=== PATIENT | female | born 1935 | race Caucasian/White ===

== ENCOUNTER 2018-02-27 14:26 | Inpatient (IN) | payer MEDICARE, OTHER ==
[~2018-02-27] VITALS: Ht 167.6 cm; Wt 68.5 kg
[2018-02-27] VITALS (11 sets, daily range): BP systolic 165–220; BP diastolic 76–100
--- NOTE | ~2018-02-27 | WRIGHTHP ---
[place], [place] PATIENT HISTORY AND PHYSICAL EXAM [id number] #: [id number] ROOM: [place] [address] DOCTOR: JENNIFFER ALMANZA MD BIRTHDATE: [birth year] DOS: 02/27/2018 HISTORY OF PRESENT ILLNESS: 1. The patient is an 82-year-old female with a past medical history of severe benign essential hypertension. 2. History of pollen allergies. 3. Mixed hyperlipidemia. The patient presented to the Emergency Department with swelling in her tongue after she was stung by a bee. The patient required epinephrine which helped her tongue swelling, but caused severe hypertension. The patient was given hydralazine and blood pressures improved. The patient does have severe history of elevated blood pressures, which are controlled with labetalol and losartan. The patient was admitted to the ICU for close monitoring, but then her blood pressures have improved and she is feeling much better. She just had some swelling in her right hand and her tongue swelling has improved. Earlier, the patient was unable to speak properly because the swelling of her tongue. REVIEW OF SYSTEMS: LUNGS: No increasing shortness of breath. GASTROINTESTINAL: No nausea, vomiting, diarrhea, constipation. CARDIOVASCULAR: No chest pain or palpitations. FAMILY HISTORY: Noncontributory. SOCIAL HISTORY: Denies smoking cigarettes, alcohol and drug abuse. PHYSICAL EXAMINATION: GENERAL: Alert, oriented x 3, in no visible distress. HEENT AND NECK: Extraocular movements are intact. Sclerae are anicteric. Oral mucosa is moist and clean. No obvious facial weakness. Neck is supple without any lymphadenopathy. No thyromegaly. No JVD. No carotid arterial bruits. LUNGS: Clear to auscultation. No wheezing. No rhonchi. CARDIOVASCULAR SYSTEM: Heart rate is regular in rate and rhythm. S1 and S2 normally audible. No significant murmur or any other abnormal cardiac sounds. ABDOMEN: Soft, nontender. No obvious organomegaly. Bowel sounds are present. No obvious herniation. EXTREMITIES: The patient with some swelling and edema on the right hand. CENTRAL NERVOUS SYSTEM: Alert and oriented x 3. Cranial nerves II-XII are intact. Speech is normal. The patient is able to move all extremities. Normal muscle strength. Deep tendon reflexes are equal on both sides. Plantars were downgoing. IMPRESSION: 1. The patient with anaphylactic reaction and swelling in her tongue to bee sting, improved with use of epinephrine. The patient was closely monitored in the ICU, but she is feeling much better, so she will be transferred to intermediate monitored bed. 2. Severe hypertension and reaction to use of epinephrine and the patient already has history of severe hypertension. The patient's blood pressures have improved after she was given hydralazine in the Emergency Department. I will continue her labetalol and losartan and follow her closely on a monitored bed. [place], [place] PATIENT HISTORY AND PHYSICAL EXAM NAME: HEBERT WILDER UNIT #: [id number] ROOM: [place] [address] DOCTOR: CAMI BRAVO,JENNIFFER Segundo BIRTHDATE: [birth year] 3. Pollen allergies treated and controlled with Zyrtec, which is being continued. 4. Mixed hyperlipidemia, treated with pravastatin, which has been continued. JENNIFFER ALMANZA MD CM:HISPHYS:PATIENT HISTORY AND PHYSICAL EXAMINATION 09 [phone] JENNIFFER ALMANZA MD 02/27/182051 interface
--- NOTE | ~2018-02-27 | DS ---
[place], [place] DISCHARGE SUMMARY NAME: HEBERT WILDER UNIT #: [id number] ROOM: 406 DOCTOR: JENNIFFER ALMANZA MD BIRTHDATE: [birth year] DOS: 02/28/2018 DISCHARGE DIAGNOSES: 1. Anaphylactic reaction to bee sting yesterday. 2. History of pollen allergies. 3. Mixed hyperlipidemia. HOSPITAL COURSE: The patient presented to the emergency department at [facility] after a bee sting. patient about an hour, but she started feeling that her tongue was swelling up and she was having difficulty in speaking. The patient was given epinephrine and she recovered, but this resulted in severe hypertension, which was treated with hydralazine. The patient's blood pressures normalized and she was continued on labetalol. The patient's blood pressures are somewhat elevated right now, so she is being restarted on losartan, which she also takes at home. We will give her 1 dose of losartan and send her home and I will see her in the office in a few days. Pollen allergies which are treated and controlled with Zyrtec, which have been continued. Mixed hyperlipidemia treated with simvastatin and followed with blood work. The patient was kept on Solu-Medrol and she has had no reaction since admission. Heart rate, blood pressures are reasonably controlled, no signs of any anaphylaxis or any swelling of the tongue or any other reactions at this time. LABORATORY DATA: Normal serum electrolytes, bilirubin, liver enzymes, normal CBC. DISCHARGE MANAGEMENT: Losartan same dose as she was taking at home, labetalol 200 mg b.i.d., simvastatin 10 mg daily, aspirin 81 mg a day, cetirizine 10 mg a day. Follow up at the office on Friday. [place], [place] DISCHARGE SUMMARY NAME: HEBERT WILDER UNIT #: [id number] ROOM: 406 DOCTOR: JENNIFFER ALMANZA MD BIRTHDATE: [birth year] JENNIFFER ALMANZA MD CM:DISCHARG [id number] JENNIFFER ALMANZA MD 02/28/18 1711 interface
[~2018-02-27 14:26] MED LIST: AMOXICILLIN500 MG PO; ANTIVERT/2525 MG PO; ATENOLOL25 MG PO; AUGMENTIN 875 M1 TA1 PO; BUSPIRONE10 MG PO; CLONIDINE0.1 MG PO; COZAAR100 MG PO; Ciprofloxacin500 MG PO; FLAGYL500 MG PO; HYDR12.5C PO; HYDROCODONE BIT1 T11 PO; LABETALOL HCL200 MG PO; LABETALOL HYDR200 MG PO; LEVOFLOXACIN500 MG PO; LOSARTAN POTASS1 TA2 PO; LOSARTAN POTASS1 TAB PO; MOTRIN800 MG PO; NAPROSYN500 MG PO; NORCO 325 MG-51 TAB PO; PRAVACHOL40 MG PO; PRED-PAK 455 MG PO; PREDNICOT10 MG PO; PREDNISONE10 MG PO; PROPRANOLOL ER80 MG PO; PROVERA10 MG PO; VIBRAMYCIN100 MG PO; ZOLOFT50 MG PO
[2018-02-27 16:12] LABS: BASO % 0.1 % (0.0-1.0); EOS # 0.1 10*3/uL (0.0-0.4); EOS % 0.9 % (1.0-4.0); HEMOGLOBIN 12.5 g/dl (12.0-16.0); LYMPH # 0.7 10*3/uL (1.3-4.4); LYMPH % 6.8 % (27.0-41.0); MEAN CELL VOLUME 90.7 fl (81.0-99.0); MEAN CORPUSCULAR HGB 31.5 pg (27.0-31.0); MEAN CORPUSCULAR HGB CONC 34.7 g/dl (33.0-37.0); MEAN PLATELET VOLUME 9.4 fl (9.6-12.3); MONO # 0.5 10*3/uL (0.1-1.0); MONO % 5.2 % (3.0-9.0); NEUT # 8.9 10*3/uL (2.3-7.9); NEUT % 86.5 % (47.0-73.0); PLATELET COUNT AUTOMATED 168 10*3/uL (130-400); RED BLOOD COUNT 3.97 10*6/uL (4.10-5.10); RED CELL DISTRI WIDTH 13.3 % (0-14.5); WHITE BLOOD COUNT 10.3 10*3/uL (4.8-10.8)
[2018-02-27 16:24] LABS: ALBUMIN 3.8 gm/dl (3.1-4.5); ALKALINE PHOSPHATASE 45 U/L (45-117); BUN 22 mg/dl (7-24); CHLORIDE 108 mmol/L (98-107); CREATININE 0.83 mg/dL (0.55-1.02); POTASSIUM 3.7 mmol/L (3.5-5.1); SGOT/AST 18 IU/L (3-35); SGPT/ALT 25 U/L (12-78); SODIUM 141 mmol/L (136-145); TOTAL PROTEIN 6.2 gm/dL (6.4-8.2)
[2018-02-27 16:25] LABS: TROPONIN I < 0.015 ng/ml (<0.045)
[2018-02-27 17:16] LABS: BILIRUBIN NEGATIVE (NEGATIVE); BLOOD NEGATIVE (NEGATIVE); CLARITY CLEAR (CLEAR); COLOR YELLOW (YELLOW); GLUCOSE NEGATIVE (NEGATIVE); KETONE NEGATIVE (NEGATIVE); LEUKO ESTERASE NEGATIVE (NEGATIVE); NITRITE NEGATIVE (NEGATIVE); PH 6.5 (5.0-9.0); SPECIFIC GRAVITY <= 1.005 (1.005-1.030); UROBILINOGEN 0.2 E.U./dl (0.2-1.0)
[2018-02-27 17:52] LABS: BACTERIA TRACE; EPITHELIAL CELLS 0-2; RBC 0-2 rbc/hpf (0-2); WBC 0-2 wbc/hpf (0-5)
[2018-02-27] MEDS ORDERED: CITRACAL + D E1 EACH PO (19:14)
[2018-02-27] MEDS ORDERED: FISH OIL CONC1000 M1 PO (19:15)
[2018-02-27] MEDS ORDERED: ZYRTEC10 MG PO (19:16)
[2018-02-27] MEDS ORDERED: PRAVASTATIN SOD20 MG PO (19:16)
[2018-02-27] MEDS ORDERED: ASPIRIN ADULT L81 M1 PO (19:16)
[2018-02-27] MEDS ORDERED: ASCORBIC ACID500 M2 PO (19:17)
[2018-02-27] MEDS ORDERED: VITAMIN D-32000 UNIT PO (19:17)
[2018-02-28] VITALS: BP 144/67
[2018-02-28 08:00] VITALS: BP 166/71
[2018-02-28 12:00] VITALS: BP 157/73
[2018-02-28 16:00] VITALS: BP 189/81
[2018-02-28] MEDS ORDERED: EPIPEN 2-P0.3 MG/0.3 IJ (16:46)
== END 2018-02-28 17:41 | disposition home or self-care (01) | DRG 918 ==
LOC: ED 14:26 → EDHOLD 17:54 → 4E 17:54 → ICCU 18:13 → 4E 21:07
PROVIDERS: Physician Assistant
DX: T63.441A Toxic effect of venom of bees, accidental (unintentional), initial encounter (principal); T78.2XXA Anaphylactic shock, unspecified, initial encounter; I16.0 Hypertensive urgency; I10 Essential (primary) hypertension; E78.2 Mixed hyperlipidemia; Z98.42 Cataract extraction status, left eye; Z98.41 Cataract extraction status, right eye; Z90.710 Acquired absence of both cervix and uterus; Z82.49 Family history of ischemic heart disease and other diseases of the circulatory system; Y92.89 Other specified places as the place of occurrence of the external cause

== ENCOUNTER 2018-08-02 09:11 | Inpatient (IN) | payer MEDICARE, OTHER ==
[~2018-08-02] VITALS: Ht 167.6 cm; Wt 69.2 kg
[2018-08-02] VITALS (10 sets, daily range): BP systolic 160–210; BP diastolic 51–89
--- NOTE | ~2018-08-02 | DS ---
[place], [place] DISCHARGE SUMMARY NAME: HEBERT WILDER UNIT #: [id number] ROOM: 408 DOCTOR: JENNIFFER ALMANZA MD BIRTHDATE: [birth year] DOS: 08/03/2018 DISCHARGE DIAGNOSES: 1. Acute angioedema with tongue swelling. 2. Benign essential hypertension with elevated blood pressures. 3. History of POLLEN ALLERGIES. 4. 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 Endometrial cancer history. 6. Severe anxiety disorder. 7. Mixed hyperlipidemia. HOSPITAL COURSE: The patient presented to the Emergency Department with acute swelling of her tongue and she was taking Cozaar at home. The patient was treated with IV Solu-Medrol and H1 and H2 blockers and she started improving quickly. The patient was admitted to ICU and she has completely improved and asymptomatic and will be discharged home today. Benign essential hypertension with white coat hypertension with elevated blood pressures, now controlled with labetalol. Blood pressures have been better and systolic ranging between 130-160 range now. Mixed hyperlipidemia, treated with pravastatin. POLLEN ALLERGIES, treated with cetirizine. Vitamin D deficiency, treated with supplements. LABORATORY DATA: Normal serum electrolytes. Blood sugar 170. Normal CBC. DISCHARGE MANAGEMENT: Prednisone 20 mg b.i.d. for 6 more days, labetalol 200 mg 3 times a day, famotidine 20 mg a day, Tagamet 800 mg daily for a week, Zyrtec 10 mg daily. [place], [place] DISCHARGE SUMMARY NAME: HEBERT WILDER UNIT #: [id number] ROOM: 408 DOCTOR: JENNIFFER ALMANZA MD BIRTHDATE: [birth year] JENNIFFER ALMANZA MD CM:DISCHARG [id number] JENNIFFER ALMANZA MD 08/03/18 1205 interface
--- NOTE | ~2018-08-02 | WRIGHTHP ---
[place], [place] PATIENT HISTORY AND PHYSICAL EXAM [id number] UNIT #: [id number] ROOM: [facility] DOCTOR: JENNIFFER ALMNAZA MD BIRTHDATE: [birth year] DOS: 08/02/2018 HISTORY OF PRESENT ILLNESS: 1. The patient is an 82-year-old female with a past medical history of BEE STING allergy, which causes anaphylaxis. 2. History of POLLEN allergies. 3. History of benign essential hypertension. 4. Mixed hyperlipidemia. 5. Severe anxiety disorder. 6. History of endometrial cancer. The patient presented to [facility] Emergency Department with swelling of the tongue starting this morning. The patient was treated with corticosteroids and antihistamine. As she started improving, she did not require intubation, but she was admitted to ICU for close monitoring. The swelling in her tongue continues to improve. No shortness of breath. No GI or urinary symptoms. No dizziness or fainting episodes. REVIEW OF SYSTEMS: RESPIRATORY: No increasing shortness of breath. GASTROINTESTINAL: The patient with acute swelling of the tongue. CARDIOVASCULAR SYSTEM: No chest pain or palpitations. ALLERGIES: 1. BEE STINGS, which causes anaphylaxis. 2. Allergy to THEO INHIBITORS and ARB, which causes tongue swelling. FAMILY HISTORY: Noncontributory. SOCIAL HISTORY: Denies smoking cigarettes, alcohol and drug abuse. HOME MEDICATIONS: Labetalol, losartan, vitamin C, aspirin, calcium, cetirizine, vitamin D, omega 3, pravastatin. PHYSICAL EXAMINATION: GENERAL: Alert and oriented. VITAL SIGNS: Blood pressure 167/72, heart rate 62 beats per minute, breathing 20 times per minute, temperature 98.5 degrees Fahrenheit. HEENT AND NECK: Extraocular movements are intact. Sclerae are anicteric. Oral mucosa is moist and clean. No obvious facial weakness. Neck is supple without any lymphadenopathy. No thyromegaly. No JVD. No carotid arterial bruits. LUNGS: Clear to auscultation. No wheezing. No rhonchi. CARDIOVASCULAR SYSTEM: Heart rate is regular in rate and rhythm. S1 and S2 normally audible. No significant murmur or any other abnormal cardiac sounds. ABDOMEN: Soft, nontender. No obvious organomegaly. Bowel sounds are present. No obvious herniation. EXTREMITIES: Without significant cyanosis or edema. Warm to touch. CENTRAL NERVOUS SYSTEM: Alert and oriented x 3. Cranial nerves II-XII are intact. Speech is normal. The patient is able to move all extremities. Normal muscle strength. Deep tendon reflexes are equal on both sides. Plantars were [place], [place] PATIENT HISTORY AND PHYSICAL EXAM NAME: HEBERT WILDER UNIT #: [id number] ROOM: [facility] DOCTOR: JENNIFFER ALMANZA MD BIRTHDATE: [birth year] downgoing. LABORATORY DATA: Chest x-ray with clear lungs. Normal serum electrolytes. Normal CBC. IMPRESSION: 1. The patient with angioedema and tongue swelling, which improved with use of corticosteroids and antihistamine. The patient to be kept on Zyrtec, ____ and prednisone and followed closely in ICU. I discussed the case with Dr. Fowler. The patient already on labetalol, which will be continued. 2. Allergy to LOSARTAN, which apparently caused angioedema, has been stopped and marked as an allergy. 3. Benign essential hypertension to be treated and controlled. 4. Mixed hyperlipidemia, treated and followed. 5. POLLEN allergies, treated with Zyrtec. 6. Generalized anxiety disorder to be treated as necessary. JENNIFFER ALMANZA MD CM:HISPHYS:PATIENT HISTORY AND PHYSICAL EXAMINATION [id number] JENNIFFER ALMANZA MD 08/02/18 1627 interface
[~2018-08-02 09:11] MED LIST changes: +ASCORBIC ACID500 M2 PO; +ASPIRIN ADULT L81 M1 PO; +CITRACAL + D E1 EACH PO; +EPIPEN 2-P0.3 MG/0.3 IJ; +FISH OIL CONC1000 M1 PO; +PRAVASTATIN SOD20 MG PO; +VITAMIN D-32000 UNIT PO; +ZYRTEC10 MG PO
[2018-08-02 09:44] LABS: BASO % 0.4 % (0.0-1.0); EOS # 0.2 10*3/uL (0.0-0.4); EOS % 3.3 % (1.0-4.0); HEMATOCRIT 36.5 % (37.0-47.0); HEMOGLOBIN 12.5 g/dl (12.0-16.0); LYMPH # 1.3 10*3/uL (1.3-4.4); LYMPH % 24.8 % (27.0-41.0); MEAN CELL VOLUME 92.2 fl (81.0-99.0); MEAN CORPUSCULAR HGB 31.6 pg (27.0-31.0); MEAN CORPUSCULAR HGB CONC 34.2 g/dl (33.0-37.0); MEAN PLATELET VOLUME 9.4 fl (9.6-12.3); MONO # 0.5 10*3/uL (0.1-1.0); MONO % 10.1 % (3.0-9.0); NEUT # 3.1 10*3/uL (2.3-7.9); PLATELET COUNT AUTOMATED 192 10*3/uL (130-400); RED BLOOD COUNT 3.96 10*6/uL (4.10-5.10); RED CELL DISTRI WIDTH 13.4 % (0-14.5); WHITE BLOOD COUNT 5.1 10*3/uL (4.8-10.8)
[2018-08-02 09:56] LABS: ACT PARTIAL THROMBO TIME 23.8 SECONDS (20.8-31.5)
[2018-08-02 09:59] LABS: ALBUMIN 3.7 gm/dl (3.1-4.5); ALKALINE PHOSPHATASE 50 U/L (45-117); BUN 18 mg/dl (7-24); CHLORIDE 105 mmol/L (98-107); CREATININE 1.04 mg/dL (0.55-1.02); POTASSIUM 4.1 mmol/L (3.5-5.1); SGOT/AST 15 IU/L (3-35); SODIUM 141 mmol/L (136-145); TOTAL PROTEIN 6.7 gm/dL (6.4-8.2)
[2018-08-02 10:01] LABS: SGPT/ALT 25 U/L (12-78)
[2018-08-02 10:18] LABS: TROPONIN I < 0.015 ng/ml (<0.045)
[2018-08-03] VITALS: BP 132/59
[2018-08-03 04:00] VITALS: BP 121/61
[2018-08-03 08:00] VITALS: BP 162/70
[2018-08-03] MEDS ORDERED: TAGAMET HB200 M1 PO (10:21)
[2018-08-03] MEDS ORDERED: PREDNISONE20 M1 PO (10:21)
== END 2018-08-03 10:45 | disposition home or self-care (01) | DRG 916 ==
LOC: ED 09:11 → EDHOLD 11:43 → ICCU 11:49 → 4E 08-03 10:12
PROVIDERS: Emergency Medicine
DX: T78.3XXA Angioneurotic edema, initial encounter (principal); I16.1 Hypertensive emergency; T46.5X5A Adverse effect of other antihypertensive drugs, initial encounter; F41.1 Generalized anxiety disorder; E78.2 Mixed hyperlipidemia; I10 Essential (primary) hypertension; E55.9 Vitamin D deficiency, unspecified; Z79.82 Long term (current) use of aspirin; Z79.899 Other long term (current) drug therapy; Z85.42 Personal history of malignant neoplasm of other parts of uterus; Z88.8 Allergy status to other drugs, medicaments and biological substances; Z91.030 Bee allergy status; Z87.81 Personal history of (healed) traumatic fracture; Z90.710 Acquired absence of both cervix and uterus; Z98.49 Cataract extraction status, unspecified eye; Y92.89 Other specified places as the place of occurrence of the external cause

== ENCOUNTER → 2019-02-02 | Outpatient (CLI) | payer MEDICARE, OTHER ==
[~2019-02-02] MED LIST changes: +PREDNISONE20 M1 PO; +TAGAMET HB200 M1 PO
== END | disposition home or self-care (01) ==
LOC: RAD 13:00
DX: Z13.820 Encounter for screening for osteoporosis (principal); Z78.0 Asymptomatic menopausal state; Z90.710 Acquired absence of both cervix and uterus

== ENCOUNTER → 2019-06-15 | Outpatient (CLI) | payer MEDICARE, OTHER ==
[2019-06-15 10:14] LABS: BASO # 0.1 10*3/uL (0.0-0.1); BASO % 1.1 % (0.0-1.0); EOS # 0.3 10*3/uL (0.0-0.4); EOS % 5.4 % (1.0-4.0); HEMATOCRIT 36.9 % (37.0-47.0); HEMOGLOBIN 12.3 g/dl (12.0-16.0); LYMPH # 0.8 10*3/uL (1.3-4.4); LYMPH % 15.3 % (27.0-41.0); MEAN CELL VOLUME 94.9 fl (81.0-99.0); MEAN CORPUSCULAR HGB 31.6 pg (27.0-31.0); MEAN CORPUSCULAR HGB CONC 33.3 g/dl (33.0-37.0); MEAN PLATELET VOLUME 9.5 fl (9.6-12.3); MONO # 0.7 10*3/uL (0.1-1.0); MONO % 13.5 % (3.0-9.0); NEUT # 3.4 10*3/uL (2.3-7.9); NEUT % 64.3 % (47.0-73.0); PLATELET COUNT AUTOMATED 186 10*3/uL (130-400); RED BLOOD COUNT 3.89 10*6/uL (4.10-5.10); RED CELL DISTRI WIDTH 13.6 % (0-14.5); WHITE BLOOD COUNT 5.4 10*3/uL (4.8-10.8)
[2019-06-15 10:41] LABS: ALBUMIN 3.8 gm/dl (3.1-4.5); ALKALINE PHOSPHATASE 69 U/L (45-117); BUN 21 mg/dl (7-24); CHLORIDE 111 mmol/L (98-107); CHOLESTEROL 135 mg/dL (<200); CPK 65 U/L (26-192); FREE T4 0.87 ng/dl (0.76-1.46); HDL CHOLESTEROL 53 mg/dl (40-60); LDL CHOLESTEROL 54 mg/dL (9-159); POTASSIUM 5.2 mmol/L (3.5-5.1); SGOT/AST 13 IU/L (3-35); SGPT/ALT 20 U/L (12-78); SODIUM 142 mmol/L (136-145); TOTAL PROTEIN 6.8 gm/dL (6.4-8.2); TRIGLYCERIDES 141 mg/dl (<150); VLDL CHOLESTEROL 28 mg/dL (6-40)
[2019-06-15 11:09] LABS: VITAMIN D, 25-HYDROXY 47.5 ng/mL (30-100)
== END | disposition home or self-care (01) ==
LOC: LAB 09:49
PROVIDERS: Internal Medicine
DX: E78.2 Mixed hyperlipidemia (principal); E55.9 Vitamin D deficiency, unspecified; I10 Essential (primary) hypertension; D52.9 Folate deficiency anemia, unspecified; D51.9 Vitamin B12 deficiency anemia, unspecified; R74.8 Abnormal levels of other serum enzymes

== ENCOUNTER → 2019-10-12 | Outpatient (CLI) | payer MEDICARE, OTHER ==
[2019-10-12 14:55] LABS: BASO % 0.7 % (0.0-1.0); EOS # 0.2 10*3/uL (0.0-0.4); EOS % 4.2 % (1.0-4.0); HEMATOCRIT 37.3 % (37.0-47.0); HEMOGLOBIN 12.3 g/dl (12.0-16.0); LYMPH # 1.1 10*3/uL (1.3-4.4); LYMPH % 24.8 % (27.0-41.0); MEAN CELL VOLUME 94.2 fl (81.0-99.0); MEAN CORPUSCULAR HGB 31.1 pg (27.0-31.0); MEAN PLATELET VOLUME 9.4 fl (9.6-12.3); MONO # 0.4 10*3/uL (0.1-1.0); MONO % 8.6 % (3.0-9.0); NEUT # 2.8 10*3/uL (2.3-7.9); PLATELET COUNT AUTOMATED 160 10*3/uL (130-400); RED BLOOD COUNT 3.96 10*6/uL (4.10-5.10); RED CELL DISTRI WIDTH 14.6 % (0-14.5); WHITE BLOOD COUNT 4.5 10*3/uL (4.8-10.8)
[2019-10-12 15:26] LABS: ALBUMIN 3.9 gm/dl (3.1-4.5); ALKALINE PHOSPHATASE 56 U/L (45-117); BUN 18 mg/dl (7-24); CHLORIDE 109 mmol/L (98-107); CREATININE 0.93 mg/dL (0.55-1.02); FREE T4 0.86 ng/dl (0.76-1.46); POTASSIUM 4.1 mmol/L (3.5-5.1); SGOT/AST 13 IU/L (3-35); SGPT/ALT 21 U/L (12-78); SODIUM 142 mmol/L (136-145); TOTAL PROTEIN 6.8 gm/dL (6.4-8.2)
[2019-10-12 15:33] LABS: VITAMIN D, 25-HYDROXY 45.7 ng/mL (30-100)
== END | disposition home or self-care (01) ==
LOC: LAB 14:12
PROVIDERS: Internal Medicine
DX: I10 Essential (primary) hypertension (principal); E78.2 Mixed hyperlipidemia; E55.9 Vitamin D deficiency, unspecified; D52.9 Folate deficiency anemia, unspecified; D51.9 Vitamin B12 deficiency anemia, unspecified

== ENCOUNTER 2019-12-02 12:03 | Inpatient (IN) | payer MEDICARE, OTHER ==
[~2019-12-02] VITALS: Ht 167.6 cm; Wt 65.0 kg
[2019-12-02] VITALS (7 sets, daily range): BP systolic 124–210; BP diastolic 54–90
[~2019-12-02 12:03] MED LIST changes: -LABETALOL HYDR200 MG PO; +NORMODYNE,TRAN100 MG PO; -PRAVASTATIN SOD20 MG PO
--- NOTE | 2019-12-02 12:48 | NUR ---
VINE PRUNER ATTEMPTED IV ACCESS.
[2019-12-02 13:06] LABS: BASO % 0.5 % (0.0-1.0); EOS # 0.2 10*3/uL (0.0-0.4); EOS % 2.3 % (1.0-4.0); HEMATOCRIT 39.4 % (37.0-47.0); HEMOGLOBIN 13.2 g/dl (12.0-16.0); LYMPH # 1.1 10*3/uL (1.3-4.4); MEAN CELL VOLUME 93.4 fl (81.0-99.0); MEAN CORPUSCULAR HGB 31.3 pg (27.0-31.0); MEAN CORPUSCULAR HGB CONC 33.5 g/dl (33.0-37.0); MEAN PLATELET VOLUME 9.2 fl (9.6-12.3); MONO # 0.6 10*3/uL (0.1-1.0); MONO % 8.5 % (3.0-9.0); NEUT # 5.5 10*3/uL (2.3-7.9); NEUT % 72.8 % (47.0-73.0); PLATELET COUNT AUTOMATED 225 10*3/uL (130-400); RED BLOOD COUNT 4.22 10*6/uL (4.10-5.10); RED CELL DISTRI WIDTH 14.5 % (0-14.5); WHITE BLOOD COUNT 7.6 10*3/uL (4.8-10.8)
[2019-12-02 13:17] LABS: ACT PARTIAL THROMBO TIME 22.3 SECONDS (20.0-32.1); INTERNATIONAL NORM RATIO 0.9 (2.0-3.5)
[2019-12-02 13:22] LABS: ALKALINE PHOSPHATASE 62 U/L (45-117); BUN 18 mg/dl (7-24); CHLORIDE 106 mmol/L (98-107); CREATININE 0.97 mg/dL (0.55-1.02); POTASSIUM 4.6 mmol/L (3.5-5.1); SGOT/AST 10 IU/L (3-35); SGPT/ALT 31 U/L (12-78); SODIUM 139 mmol/L (136-145); TOTAL PROTEIN 7.2 gm/dL (6.4-8.2)
[2019-12-02 13:25] LABS: TROPONIN I < 0.015 ng/ml (<0.045)
--- NOTE | 2019-12-02 14:29 | NUR ---
AMBULATED TO BATHROOM, TOLERATEWD WELL.
--- NOTE | 2019-12-02 14:38 | NUR ---
GIVEN BOXED LUNCH REQUESTED.
--- NOTE | 2019-12-02 14:38 | NUR ---
SMALL ABRASION AND HEMATOMA TO RT EYEBROW AREA. COLD SORE UNDER LEFT NARES. SEVERAL ABRASIONS TO RT KNUCKES AND RT WRIST.
--- NOTE | 2019-12-02 15:59 | NUR ---
DAUGHTER MATHEUS LOUIS [phone]
[2019-12-02] MEDS ORDERED: NORVASC5 MG PO (16:32)
[2019-12-02] MEDS ORDERED: MULTI-VITAMIN1 EACH PO (16:33)
--- NOTE | 2019-12-02 16:45 | NUR ---
Spoke with Dr. Perez regarding pt admit to floor. Notified of xray report of elbow with acute fracture of radial neck.
--- NOTE | 2019-12-02 16:52 | NUR ---
Message left with Dr. Mejia answering service regarding consult, reason for consult. Awaiting call back.
--- NOTE | 2019-12-02 17:56 | NUR ---
Spoke with Dr. Perez regarding pt c/o pain. NEw orders received for eBreviain.
--- NOTE | 2019-12-02 18:05 | NUR ---
Taken off floor for CT.
--- NOTE | 2019-12-02 18:14 | NUR ---
Medicated with norco per prn order for complaints of pain to rt wrist.
--- NOTE | 2019-12-02 18:26 | NUR ---
Pt daughter here and asking about pt arm. States pt is in a lot of pain from arm. States wrist is hurting. Pt is having difficulty moving and pain with movement. Notified that pt had an acute fracture of radial neck and that Dr. Mejia was consulted. Awaiting call back from him. I also spoke with Dr. Dupree in ER regarding this because when I received report from SUPERVISORY [employer] INTERCEPT CONTROLLER she stated in report that xrays just showed soft tissue swelling. Dr. Dupree reviewed xray and states he will be up to splint pt arm this evening. Notified pt daughter.
--- NOTE | 2019-12-02 19:45 | NUR ---
NOTIFIED SHIFT DIRECTOR THAT DR. SOTO WAS SUPPOSED TO SPLINT PATIENTS ARM. PER ER DR SOTO HAS GONE HOME. AWNING HANGER SUPERVISOR TO CALL DR. DYRE TO SEE IF SHE WILL COME UP TO SPLINT PATIENTS ARM.
--- NOTE | 2019-12-02 20:12 | NUR ---
DR. SOTO INTO SPLINT PATIETN. PATIENT TOLERATED WELL. PATIENT C/O PAIN IN RIGHT WRIST. DR. SOTO TO ORDER WRIST XRAY.
--- NOTE | 2019-12-02 21:00 | NUR ---
PATIENT R ARM IV REMOVED BECAUSE PATIEN RIGHT ARM IS BEING PLACED IN A SPLINT. NEW IV STARTED IN LAC. PT. TOLERATED WELL. IV FLUIDS INFUSING.
[2019-12-03] VITALS: BP 177/61
--- NOTE | 2019-12-03 | NUR ---
PATIENT RESTING COMFORTABLY IN BED. RESPIRATIONS EASY, NON LABORED. DENIES PAIN. NO SIGNS OF DISTRESS. IV FLUIDS INFUSING AT 100ML/HR. BED IN LOWEST POSITION, CALL LIGHT WITHIN REACH. WILL CONTINUE TO MONITOR.
--- NOTE | 2019-12-03 04:00 | NUR ---
PATIENT IN BED,SLEEPING. NO SIGNS OF DISTRESS. WILL CONTINUE TO MONITOR.
[2019-12-03 06:54] LABS: BASO % 0.3 % (0.0-1.0); EOS # 0.1 10*3/uL (0.0-0.4); EOS % 1.1 % (1.0-4.0); HEMATOCRIT 36.1 % (37.0-47.0); LYMPH % 13.5 % (27.0-41.0); MEAN CORPUSCULAR HGB 31.3 pg (27.0-31.0); MEAN CORPUSCULAR HGB CONC 33.2 g/dl (33.0-37.0); MEAN PLATELET VOLUME 9.1 fl (9.6-12.3); MONO # 0.7 10*3/uL (0.1-1.0); MONO % 10.1 % (3.0-9.0); NEUT # 5.3 10*3/uL (2.3-7.9); NEUT % 74.4 % (47.0-73.0); PLATELET COUNT AUTOMATED 204 10*3/uL (130-400); RED BLOOD COUNT 3.84 10*6/uL (4.10-5.10); RED CELL DISTRI WIDTH 14.3 % (0-14.5); WHITE BLOOD COUNT 7.1 10*3/uL (4.8-10.8)
[2019-12-03 07:08] LABS: BUN 14 mg/dl (7-24); CHLORIDE 111 mmol/L (98-107); CREATININE 0.81 mg/dL (0.55-1.02); SODIUM 142 mmol/L (136-145)
[2019-12-03 07:09] LABS: POTASSIUM 3.6 mmol/L (3.5-5.1)
[2019-12-03 08:00] VITALS: BP 162/74
--- NOTE | 2019-12-03 08:30 | NUR ---
Senior Peoples[employer] Developer in to talk to patient. Patient states lives at home with her . There are 0 steps in the home. Physician: Dr. Marvin Green Pharmacy: [facility] Home health services: none Patient's level of ADLs: INDEPENDENT Patient has working utilities: yes DME: none Follow-up physician's appointment after d/c: she prefers to make her own follow up appt after discharge Does patient want to access PORTAL?: no Discharge plan discussed with patient. She lives at home with her . She is independent in her ADLs and ambulation. Discussed home health care services and she denies any home needs. When medically stable she will be discharged to home. She states her daughter will provide transportation on discharge. JOHNATHAN DUBON
--- NOTE | 2019-12-03 09:15 | NUR ---
Pt refused MRI. States she doesn't feel she needs an MRI and she doesn't like our MRI machine. States she wants to have MRI if she truly needs it in an open MRI.
--- NOTE | 2019-12-03 09:29 | NUR ---
[facility] called and states that they do not have any ortho coverage until December 25.
--- NOTE | 2019-12-03 09:36 | NUR ---
Notified Dr. Perez that we do not have ortho coverage until December 25. Notified that ER did splint rt arm. Reviewed ct of chest. States she will be in later, states possible dc today and then she can follow up as OP.
[2019-12-03] MEDS ORDERED: AMLODIPINE BESY10 MG PO (11:27)
[2019-12-03 11:52] VITALS: BP 162/70
--- NOTE | 2019-12-03 11:57 | NUR ---
Discharge instructions reviewed with patient/family. Patient receptive and verbalizes understanding. Follow-up care arranged. Written instructions given to patient/daughter. Pt left via ambulatory in care of daughter and pt . Declined wheelchair. Gait steady. Sling was applied prior to pt leaving. JOSÉ MIGUEL BRAMBILA
== END 2019-12-03 12:00 | disposition home or self-care (01) | DRG 305 ==
LOC: ED 12:03 → EDHOLD 14:30 → 4E 15:31
PROVIDERS: Emergency Medicine; ADMIT Internal Medicine
PROC: 2W3CX1Z Immobilization of Right Lower Arm using Splint (ICD-10-PCS; principal; 2019-12-02)
DX: I16.9 Hypertensive crisis, unspecified (principal); I10 Essential (primary) hypertension; E78.5 Hyperlipidemia, unspecified; T78.3XXA Angioneurotic edema, initial encounter; S52.134A Nondisplaced fracture of neck of right radius, initial encounter for closed fracture; F41.1 Generalized anxiety disorder; E78.2 Mixed hyperlipidemia; J06.9 Acute upper respiratory infection, unspecified; W19.XXXA Unspecified fall, initial encounter; Y93.89 Activity, other specified; Y92.89 Other specified places as the place of occurrence of the external cause; Y99.8 Other external cause status; Z88.8 Allergy status to other drugs, medicaments and biological substances; Z91.030 Bee allergy status; Z79.899 Other long term (current) drug therapy; Z98.49 Cataract extraction status, unspecified eye

== ENCOUNTER → 2020-11-24 | Outpatient (CLI) | payer MEDICARE, OTHER ==
[~2020-11-24] MED LIST changes: +AMLODIPINE BESY10 MG PO; +MULTI-VITAMIN1 EACH PO; +NORVASC5 MG PO
[2020-11-24 09:51] LABS: BASO % 0.6 % (0.0-1.0); EOS # 0.2 10*3/uL (0.0-0.4); EOS % 2.9 % (1.0-4.0); HEMATOCRIT 38.5 % (37.0-47.0); LYMPH # 0.9 10*3/uL (1.3-4.4); LYMPH % 16.8 % (27.0-41.0); MEAN CELL VOLUME 95.5 fl (81.0-99.0); MEAN CORPUSCULAR HGB 31.5 pg (27.0-31.0); MEAN PLATELET VOLUME 8.7 fl (9.6-12.3); MONO # 0.7 10*3/uL (0.1-1.0); MONO % 13.3 % (3.0-9.0); NEUT # 3.4 10*3/uL (2.3-7.9); NEUT % 66.2 % (47.0-73.0); PLATELET COUNT AUTOMATED 183 10*3/uL (130-400); RED BLOOD COUNT 4.03 10*6/uL (4.10-5.10); RED CELL DISTRI WIDTH 13.5 % (0-14.5); WHITE BLOOD COUNT 5.2 10*3/uL (4.8-10.8)
[2020-11-24 10:48] LABS: ALBUMIN 3.9 gm/dl (3.1-4.5); ALKALINE PHOSPHATASE 51 U/L (45-117); BUN 18 mg/dl (7-24); CHLORIDE 107 mmol/L (98-107); CHOLESTEROL 142 mg/dL (<200); CPK 45 U/L (26-192); CREATININE 0.94 mg/dL (0.55-1.02); FREE T4 0.98 ng/dl (0.76-1.46); HDL CHOLESTEROL 73 mg/dl (40-60); LDL CHOLESTEROL 41 mg/dL (9-159); POTASSIUM 4.4 mmol/L (3.5-5.1); SGOT/AST 6 IU/L (3-35); SGPT/ALT 19 U/L (12-78); SODIUM 142 mmol/L (136-145); TOTAL PROTEIN 6.7 gm/dL (6.4-8.2); TRIGLYCERIDES 141 mg/dl (<150); VLDL CHOLESTEROL 28 mg/dL (6-40)
[2020-11-24 11:35] LABS: VITAMIN D, 25-HYDROXY 47.1 ng/mL (30-100)
== END | disposition home or self-care (01) ==
LOC: LAB 09:27
PROVIDERS: ATTEND Internal Medicine
DX: Z00.00 Encounter for general adult medical examination without abnormal findings (principal); I10 Essential (primary) hypertension; E78.2 Mixed hyperlipidemia; E55.9 Vitamin D deficiency, unspecified

== ENCOUNTER → 2020-12-20 | Outpatient (CLI) | payer MEDICARE, OTHER ==
[2020-12-20 15:29] LABS: ALBUMIN 3.9 gm/dl (3.1-4.5); BUN 22 mg/dl (7-24); CHLORIDE 107 mmol/L (98-107); CREATININE 0.92 mg/dL (0.55-1.02); SGOT/AST 13 IU/L (3-35); SGPT/ALT 22 U/L (12-78); SODIUM 141 mmol/L (136-145)
[2020-12-20 15:31] LABS: ALKALINE PHOSPHATASE 53 U/L (45-117); TOTAL PROTEIN 6.9 gm/dL (6.4-8.2)
== END | disposition home or self-care (01) ==
LOC: LAB 14:23
PROVIDERS: ATTEND Orthopaedic Surgery
DX: I10 Essential (primary) hypertension (principal); Z79.1 Long term (current) use of non-steroidal anti-inflammatories (NSAID)

== ENCOUNTER → 2021-04-03 | Outpatient (CLI) | payer MEDICARE, OTHER ==
[2021-04-03 15:11] LABS: BASO % 0.5 % (0.0-1.0); EOS # 0.1 10*3/uL (0.0-0.4); EOS % 2.5 % (1.0-4.0); LYMPH % 17.2 % (27.0-41.0); MEAN CELL VOLUME 95.5 fl (81.0-99.0); MEAN CORPUSCULAR HGB 31.9 pg (27.0-31.0); MEAN CORPUSCULAR HGB CONC 33.4 g/dl (33.0-37.0); MEAN PLATELET VOLUME 9.2 fl (9.6-12.3); MONO # 0.6 10*3/uL (0.1-1.0); MONO % 10.9 % (3.0-9.0); NEUT # 3.9 10*3/uL (2.3-7.9); NEUT % 68.4 % (47.0-73.0); PLATELET COUNT AUTOMATED 238 10*3/uL (130-400); RED BLOOD COUNT 3.98 10*6/uL (4.10-5.10); RED CELL DISTRI WIDTH 13.5 % (0-14.5); WHITE BLOOD COUNT 5.7 10*3/uL (4.8-10.8)
[2021-04-03 15:24] LABS: ACT PARTIAL THROMBO TIME 22.9 SECONDS (20.0-32.1)
[2021-04-03 15:43] LABS: ALBUMIN 3.7 gm/dl (3.1-4.5); BUN 17 mg/dl (7-24); CHLORIDE 104 mmol/L (98-107); CHOLESTEROL 165 mg/dL (<200); CREATININE 0.98 mg/dL (0.55-1.02); FREE T4 1.07 ng/dl (0.76-1.46); POTASSIUM 3.9 mmol/L (3.5-5.1); SGOT/AST 5 IU/L (3-35); SGPT/ALT 16 U/L (12-78); SODIUM 140 mmol/L (136-145)
[2021-04-03 15:49] LABS: ALKALINE PHOSPHATASE 78 U/L (45-117); LDL CHOLESTEROL 71 mg/dL (9-159); TOTAL PROTEIN 6.8 gm/dL (6.4-8.2); TRIGLYCERIDES 193 mg/dl (<150); VITAMIN D, 25-HYDROXY 46.1 ng/mL (30-100)
== END | disposition home or self-care (01) ==
LOC: LAB 14:16
PROVIDERS: ATTEND Internal Medicine
DX: J44.9 Chronic obstructive pulmonary disease, unspecified (principal); R53.81 Other malaise; E78.2 Mixed hyperlipidemia; I10 Essential (primary) hypertension; E55.9 Vitamin D deficiency, unspecified; M76.821 Posterior tibial tendinitis, right leg; K90.49 Malabsorption due to intolerance, not elsewhere classified

== ENCOUNTER → 2021-04-24 | Outpatient (CLI) | payer MEDICARE, OTHER | END | disposition home or self-care (01) | LOC: US 14:29 | PROVIDERS: ATTEND Orthopaedic Surgery | DX: I82.402 Acute embolism and thrombosis of unspecified deep veins of left lower extremity (principal); M79.89 Other specified soft tissue disorders ==

== ENCOUNTER → 2021-09-25 | Outpatient (CLI) | payer MEDICARE, OTHER ==
[2021-09-25 13:42] LABS: BILIRUBIN Negative (Negative); BLOOD Negative (Negative); CLARITY Clear (Clear); COLOR Yellow (Yellow); GLUCOSE Negative (Negative); KETONE Negative (Negative); LEUKO ESTERASE Negative (Negative); NITRITE Negative (Negative); SPECIFIC GRAVITY 1.025 (1.001-1.030); UROBILINOGEN 0.2 E.U./dl (0.0-1.0)
[2021-09-25 13:45] LABS: BASO % 0.5 % (0.0-1.0); EOS # 0.3 10*3/uL (0.0-0.4); EOS % 3.5 % (1.0-4.0); HEMATOCRIT 39.4 % (37.0-47.0); LYMPH # 1.2 10*3/uL (1.3-4.4); LYMPH % 16.6 % (27.0-41.0); MEAN CELL VOLUME 95.2 fl (81.0-99.0); MEAN CORPUSCULAR HGB 31.2 pg (27.0-31.0); MEAN CORPUSCULAR HGB CONC 32.7 g/dl (33.0-37.0); MEAN PLATELET VOLUME 9.8 fl (9.6-12.3); MONO # 0.9 10*3/uL (0.1-1.0); MONO % 11.5 % (3.0-9.0); NEUT % 67.6 % (47.0-73.0); PLATELET COUNT AUTOMATED 228 10*3/uL (130-400); RED BLOOD COUNT 4.14 10*6/uL (4.10-5.10); RED CELL DISTRI WIDTH 14.7 % (0-14.5); WHITE BLOOD COUNT 7.4 10*3/uL (4.8-10.8)
[2021-09-25 13:55] LABS: ACT PARTIAL THROMBO TIME 24.4 SECONDS (20.0-32.1)
[2021-09-25 13:59] LABS: ALBUMIN 4.2 gm/dl (3.1-4.5); ALKALINE PHOSPHATASE 85 U/L (45-117); BUN 19 mg/dl (7-24); CHLORIDE 109 mmol/L (98-107); POTASSIUM 4.4 mmol/L (3.5-5.1); SGOT/AST 13 IU/L (3-35); SGPT/ALT 22 U/L (12-78); SODIUM 140 mmol/L (136-145); TOTAL PROTEIN 7.2 gm/dL (6.4-8.2)
[2021-09-25 14:34] LABS: BACTERIA TRACE
[2021-09-25 14:35] LABS: EPITHELIAL CELLS 0-2; WBC 0-2 wbc/hpf (0-5)
== END | disposition home or self-care (01) ==
LOC: LAB 13:16
PROVIDERS: ATTEND Internal Medicine
DX: Z01.818 Encounter for other preprocedural examination (principal); M16.11 Unilateral primary osteoarthritis, right hip; J44.9 Chronic obstructive pulmonary disease, unspecified; I51.7 Cardiomegaly

== ENCOUNTER → 2021-11-19 | Outpatient (CLI) | payer MEDICARE, OTHER ==
[2021-11-19 17:14] LABS: BODY FLUID WBC 1041 /uL
[2021-11-19 18:38] LABS: BF LYMPHOCYTES 5 %; BF MACROPHAGES 13 %; BF NEUTROPHILS 82 %
== END | disposition home or self-care (01) ==
LOC: LAB 16:30
PROVIDERS: ATTEND Orthopaedic Surgery
DX: M96.842 Postprocedural seroma of a musculoskeletal structure following a musculoskeletal system procedure (principal)

== ENCOUNTER → 2022-02-28 | Outpatient (CLI) | payer MEDICARE, OTHER | END | disposition home or self-care (01) | LOC: RAD 14:00 | PROVIDERS: ATTEND Internal Medicine | DX: M85.88 Other specified disorders of bone density and structure, other site (principal) ==

== ENCOUNTER 2023-02-22 17:12 | Emergency (ER) | payer MEDICARE, OTHER ==
[~2023-02-22] VITALS: Wt 81.6 kg
[2023-02-22 17:38] LABS: BASO % 0.4 % (0.0-1.0); HEMATOCRIT 43.2 % (37.0-47.0); LYMPH # 0.5 10*3/uL (1.3-4.4); MEAN CELL VOLUME 95.4 fl (81.0-99.0); MEAN CORPUSCULAR HGB 32.9 pg (27.0-31.0); MEAN CORPUSCULAR HGB CONC 34.5 g/dl (33.0-37.0); NEUT # 6.7 10*3/uL (2.3-7.9); NEUT % 81.2 % (47.0-73.0); PLATELET COUNT AUTOMATED 219 10*3/uL (130-400); RED BLOOD COUNT 4.53 10*6/uL (4.10-5.10); RED CELL DISTRI WIDTH 13.6 % (0-14.5); WHITE BLOOD COUNT 8.3 10*3/uL (4.8-10.8)
[2023-02-22 17:55] LABS: ALKALINE PHOSPHATASE 44 U/L (46-116); BUN 17 mg/dl (9-23); CHLORIDE 106 mmol/L (98-107); LIPASE 41 U/L (12-53); POTASSIUM 3.9 mmol/L (3.4-5.1); SGPT/ALT 10 U/L (10-49); TOTAL PROTEIN 7.1 gm/dL (6.0-8.0)
[2023-02-22 19:13] LABS: BILIRUBIN Negative (Negative); BLOOD Negative (Negative); CLARITY Cloudy (Clear); COLOR Yellow (Yellow); GLUCOSE Negative (Negative); KETONE Trace (Negative); LEUKO ESTERASE Trace (Negative); NITRITE Negative (Negative); PH 7.5 (4.5-8.0)
[2023-02-22 19:22] LABS: BACTERIA 1+
[2023-02-22] MEDS ORDERED: ONDANSETRON4 MG SL (19:47)
== END 2023-02-22 20:00 | disposition home or self-care (01) ==
LOC: ED 17:12
PROVIDERS: Nurse Practitioner Family
DX: R11.2 Nausea with vomiting, unspecified (principal); I10 Essential (primary) hypertension; Z90.710 Acquired absence of both cervix and uterus; Z91.030 Bee allergy status; Z88.8 Allergy status to other drugs, medicaments and biological substances; Z79.899 Other long term (current) drug therapy; Z90.89 Acquired absence of other organs

== ENCOUNTER 2023-03-02 19:57 | Emergency (ER) | payer MEDICARE, OTHER ==
[~2023-03-02] VITALS: Ht 167.6 cm; Wt 65.8 kg
[~2023-03-02 19:57] MED LIST changes: +ONDANSETRON4 MG SL
== END 2023-03-02 21:55 | disposition home or self-care (01) ==
LOC: ED 19:57
DX: S00.93XA Contusion of unspecified part of head, initial encounter (principal); S60.222A Contusion of left hand, initial encounter; I10 Essential (primary) hypertension; Z98.49 Cataract extraction status, unspecified eye; E78.00 Pure hypercholesterolemia, unspecified; Z91.030 Bee allergy status; Z88.8 Allergy status to other drugs, medicaments and biological substances; Z90.710 Acquired absence of both cervix and uterus; Z98.890 Other specified postprocedural states; W01.10XA Fall on same level from slipping, tripping and stumbling with subsequent striking against unspecified object, initial encounter; Y93.89 Activity, other specified; Y92.009 Unspecified place in unspecified non-institutional (private) residence as the place of occurrence of the external cause; Y99.8 Other external cause status

== ENCOUNTER 2023-05-31 12:37 | Emergency (ER) | payer MEDICARE, OTHER ==
[~2023-05-31] VITALS: Ht 167.6 cm; Wt 64.9 kg
[2023-05-31] MEDS ORDERED: PREDNISONE50 MG PO (13:52)
== END 2023-05-31 17:31 | disposition home or self-care (01) ==
LOC: ED 12:37
DX: T63.441A Toxic effect of venom of bees, accidental (unintentional), initial encounter (principal); I10 Essential (primary) hypertension; Y92.89 Other specified places as the place of occurrence of the external cause; Z88.8 Allergy status to other drugs, medicaments and biological substances; Z90.710 Acquired absence of both cervix and uterus; Z98.890 Other specified postprocedural states

== ENCOUNTER 2023-06-22 15:33 | Emergency (ER) | payer MEDICARE, OTHER ==
[~2023-06-22] VITALS: Ht 167.6 cm; Wt 64.9 kg
[~2023-06-22 15:33] MED LIST changes: +PREDNISONE50 MG PO
[2023-06-22 16:13] LABS: BASO # 0.1 10*3/uL (0.0-0.1); BASO % 1.1 % (0.0-1.0); EOS # 0.4 10*3/uL (0.0-0.4); EOS % 8.8 % (1.0-4.0); HEMATOCRIT 37.8 % (37.0-47.0); LYMPH % 20.2 % (27.0-41.0); MEAN CELL VOLUME 95.9 fl (81.0-99.0); MEAN CORPUSCULAR HGB 32.7 pg (27.0-31.0); MEAN CORPUSCULAR HGB CONC 34.1 g/dl (33.0-37.0); MEAN PLATELET VOLUME 8.8 fl (9.6-12.3); MONO # 0.8 10*3/uL (0.1-1.0); MONO % 15.8 % (3.0-9.0); NEUT # 2.6 10*3/uL (2.3-7.9); NEUT % 53.7 % (47.0-73.0); PLATELET COUNT AUTOMATED 173 10*3/uL (130-400); RED BLOOD COUNT 3.94 10*6/uL (4.10-5.10); RED CELL DISTRI WIDTH 13.1 % (0-14.5); WHITE BLOOD COUNT 4.8 10*3/uL (4.8-10.8)
[2023-06-22 16:40] LABS: POTASSIUM 4.4 mmol/L (3.4-5.1); TOTAL PROTEIN 6.7 gm/dL (6.0-8.0)
== END 2023-06-22 17:23 | disposition home or self-care (01) ==
LOC: ED 15:33
PROVIDERS: Emergency Medicine
DX: T63.441A Toxic effect of venom of bees, accidental (unintentional), initial encounter (principal); T78.2XXA Anaphylactic shock, unspecified, initial encounter; I10 Essential (primary) hypertension; E78.00 Pure hypercholesterolemia, unspecified; Z88.8 Allergy status to other drugs, medicaments and biological substances; Z90.710 Acquired absence of both cervix and uterus; Z98.890 Other specified postprocedural states; Z98.49 Cataract extraction status, unspecified eye; X58.XXXA Exposure to other specified factors, initial encounter

== ENCOUNTER → 2023-08-13 | Outpatient (CLI) | payer MEDICARE, OTHER ==
[2023-08-13 10:07] LABS: BASO # 0.1 10*3/uL (0.0-0.1); EOS # 0.3 10*3/uL (0.0-0.4); HEMATOCRIT 39.4 % (37.0-47.0); LYMPH # 0.8 10*3/uL (1.3-4.4); LYMPH % 16.3 % (27.0-41.0); MEAN CORPUSCULAR HGB 32.2 pg (27.0-31.0); MEAN CORPUSCULAR HGB CONC 32.5 g/dl (33.0-37.0); MONO # 0.7 10*3/uL (0.1-1.0); MONO % 13.6 % (3.0-9.0); NEUT % 62.7 % (47.0-73.0); PLATELET COUNT AUTOMATED 222 10*3/uL (130-400); RED BLOOD COUNT 3.98 10*6/uL (4.10-5.10); RED CELL DISTRI WIDTH 13.8 % (0-14.5); WHITE BLOOD COUNT 4.8 10*3/uL (4.8-10.8)
[2023-08-13 10:39] LABS: ALKALINE PHOSPHATASE 40 U/L (46-116); BUN 12 mg/dl (9-23); CHLORIDE 110 mmol/L (98-107); CHOLESTEROL 147 mg/dL (<200); FREE T4 1.04 ng/dl (0.89-1.76); LDL CHOLESTEROL 62 mg/dL (9-159); POTASSIUM 5.2 mmol/L (3.4-5.1); SGPT/ALT 12 U/L (10-49); TOTAL PROTEIN 6.6 gm/dL (6.0-8.0); TRIGLYCERIDES 120 mg/dl (<150); VITAMIN D, 25-HYDROXY 59.8 ng/mL (30-100)
== END | disposition home or self-care (01) ==
LOC: LAB 09:31
PROVIDERS: ATTEND Internal Medicine
DX: Z13.1 Encounter for screening for diabetes mellitus (principal); Z13.0 Encounter for screening for diseases of the blood and blood-forming organs and certain disorders involving the immune mechanism; Z13.21 Encounter for screening for nutritional disorder; Z13.220 Encounter for screening for lipoid disorders; Z13.228 Encounter for screening for other metabolic disorders; Z13.29 Encounter for screening for other suspected endocrine disorder; Z13.6 Encounter for screening for cardiovascular disorders; Z13.89 Encounter for screening for other disorder; Z13.9 Encounter for screening, unspecified; I10 Essential (primary) hypertension; E78.2 Mixed hyperlipidemia; F41.1 Generalized anxiety disorder; F33.0 Major depressive disorder, recurrent, mild; E55.9 Vitamin D deficiency, unspecified